=== PATIENT | female | born 1995 | race Caucasian/White ===

== ENCOUNTER 2024-08-04 19:19 | Emergency (ER) | payer SELFPAY ==
[~2024-08-04] VITALS: Ht 165.1 cm; Wt 90.0 kg
[2024-08-04 19:23] VITALS: BP 150/72; PULSE 110; RESP 18; TEMP 37.1; O2SAT 99
[2024-08-04] MEDS: ACETAMINOPHEN 325MG TABLET PO STA (20:44)
[2024-08-04] MEDS ORDERED: IBUP-2029 MT (20:45)
== END 2024-08-04 21:00 | disposition home or self-care (01) ==
LOC: ER 19:19
DX: S09.8XXA Other specified injuries of head, initial encounter (principal); S10.83XA Contusion of other specified part of neck, initial encounter; V89.2XXA Person injured in unspecified motor-vehicle accident, traffic, initial encounter; Y93.89 Activity, other specified; Y92.410 Unspecified street and highway as the place of occurrence of the external cause; Y99.8 Other external cause status
CPT/HCPCS: 99284